=== PATIENT | female | born 1960 | race Caucasian/White ===

== ENCOUNTER → 2017-02-16 | Outpatient (CLI) | payer BC ==
--- NOTE | 2017-02-19 07:40 | MM ---
Reason for exam: screening (asymptomatic). Last mammogram was performed 1 year and 3 months ago. History: Patient is postmenopausal and history of other cancer. Benign excisional biopsy of the right breast, 2004. Benign excisional biopsy of the right breast, 2001. Taking estrogen for 2 years. Taking progesterone for 2 years. Physical Findings: A clinical breast exam by your physician is recommended on an annual basis and results should be correlated with mammographic findings. MG Screening Mammo w CAD Bilateral CC and MLO view(s) were taken. Prior study comparison: November 04, 2015, bilateral MG screening mammo w CAD. March 12, 2014, mammogram. The breast tissue is almost entirely fat. Previous mammotome biopsy in the right breast. No significant changes when compared with prior studies. ASSESSMENT: Benign, BI-RAD 2 RECOMMENDATION: Routine screening mammogram of both breasts in 1 year.
== END | disposition home or self-care (01) ==
LOC: RADMAMWWP 08:10
PROVIDERS: ATTEND Family Medicine
DX: Z12.31 Encounter for screening mammogram for malignant neoplasm of breast (principal)

== ENCOUNTER → 2017-08-14 | Outpatient (CLI) | payer MEDICARE ==
--- NOTE | 2017-08-14 22:41 | BD ---
EXAMINATION TYPE: MG DEXA axial skeleton. DATE OF EXAM: 08/14/2017 COMPARISON: NONE CLINICAL HISTORY: 56-year-old female other specified disorders of bone, postmenopausal screening Height: 63.5 IN Weight: 176 LBS FRAX RISK QUESTIONS: Alcohol (3 or more units per day): NO Family History (Parent hip fracture): NO Glucocorticoids (More than 3mos): NO (Ex: prednisone, prednisolone, methylprednisolone, dexamethasone, and hydrocortisone). History of Fracture in Adulthood: YES LT FOOT AGE 56 Secondary Osteoporosis: 1. Type 1 Diabetes: NO 2. Hyperthyroidism: NO 3. Menopause before 45: NO 4. Malnutrition: NO 5. Chronic liver disease: NO Rheumatoid Arthritis: NO Current Tobacco Use: NO RISK FACTORS HISTORY OF: Active: YES Postmenopausal woman: AGE43 MEDICATIONS: Additional Medications: TRAMADOL LONG AND SHORT ACTING, ATORVASTATIN, OSPHENA, DICLOFENAC SODIUM, ME TAXALONE, EXAM MEASUREMENTS: Bone mineral densitometry was performed using the [employer] System. Bone mineral density as measured about the Lumbar spine is: ----- L1-L4(G/cm2): 1.110 T Score Values are as follows: ----- L2: -0.1 ----- L3: -0.4 ----- L4: -0.5 ----- L1-L4: -0.6 Bone mineral density BASELINE Bone mineral density about the R hip (g/cm2): 0.898 Bone mineral density about the L hip (g/cm2): 0.800 T Score values are as follows: -----R Neck: -1.0 -----L Neck: -1.7 -----R Total: -0.2 -----L Total: -0.9 Bone mineral density BASELINE IMPRESSION: Osteopenia (T Score between -2.5 and -1). There is slightly increased risk of fracture and the patient may be considered for treatment. Re-Screen 2-5 years. NOTE: T-SCORE=SD OF THE YOUNG ADULT MEAN.
== END | disposition home or self-care (01) ==
LOC: RADBDWWP 13:15
PROVIDERS: ATTEND Family Medicine
DX: M85.80 Other specified disorders of bone density and structure, unspecified site (principal)
CPT/HCPCS: 77080

== ENCOUNTER → 2018-03-19 | Outpatient (CLI) | payer MEDICARE ==
--- NOTE | 2018-03-20 12:57 | MM ---
Reason for exam: screening (asymptomatic). Last mammogram was performed 1 year and 1 month ago. History: Patient is postmenopausal and history of other cancer. Benign excisional biopsy of the right breast, 2004. Benign excisional biopsy of the right breast, 2001. Taking estrogen for 2 years. Taking progesterone for 2 years. Physical Findings: A clinical breast exam by your physician is recommended on an annual basis and results should be correlated with mammographic findings. MG 3D Screening Mammo W/Cad Bilateral CC and MLO view(s) were taken. Prior study comparison: February 16, 2017, bilateral MG screening mammo w CAD. November 04, 2015, bilateral MG screening mammo w CAD. There are scattered fibroglandular densities. There are benign appearing round calcifications bilaterally. Previous mammotome biopsy in the right breast. There is no discrete abnormality. ASSESSMENT: Benign, BI-RAD 2 RECOMMENDATION: Routine screening mammogram of both breasts in 1 year.
== END | disposition home or self-care (01) ==
LOC: RADMAMWWP 13:01
PROVIDERS: ATTEND Family Medicine
DX: Z12.31 Encounter for screening mammogram for malignant neoplasm of breast (principal)
CPT/HCPCS: 77063; 77067

== ENCOUNTER → 2018-08-08 | Outpatient (CLI) | payer MEDICARE ==
--- NOTE | 2018-08-09 04:28 | XR ---
EXAMINATION TYPE: XR thoracic spine complete DATE OF EXAM: 08/08/2018 Comparison: None Clinical History: 57-year-old female spinal cord stimulator insertion, M54.5 Findings: 12 rib-bearing thoracic vertebral bodies. All pedicles are visualized. Vertebral body heights are pre served and alignment is maintained. Impression: No vertebral compression collapse or malalignment seen.
== END ==
LOC: RADXRMAIN 14:11
PROVIDERS: ATTEND Physician Assistant
DX: M54.5 Low back pain (principal)
CPT/HCPCS: 72072

== ENCOUNTER → 2019-04-10 | Outpatient (CLI) | payer MEDICARE ==
--- NOTE | 2019-04-10 09:32 | MM ---
Reason for exam: additional evaluation requested from prior study. Last mammogram was performed 1 year and 1 month ago. History: Patient is postmenopausal and history of other cancer. Benign excisional biopsy of the right breast, 2004. Benign excisional biopsy of the right breast, 2001. Taking estrogen for 5 years. Taking progesterone for 5 years. Physical Findings: Nurse did not find any significant physical abnormalities on exam. MG 3D Diag Mammo W/Cad ALLISON Bilateral CC and MLO view(s) were taken. Prior study comparison: March 19, 2018, bilateral MG 3d screening mammo w/cad. February 16, 2017, bilateral MG screening mammo w CAD. There are scattered fibroglandular densities. Benign appearing bilateral calcifications. Post surgical change on the right. Right biopsy marker noted. These results were verbally communicated with the patient and result sheet given to the patient on 04/10/19. ASSESSMENT: Benign, BI-RAD 2 RECOMMENDATION: Routine screening mammogram of both breasts in 1 year. Manage patient on a clinical basis. Dermatology consult recommended.
== END | disposition home or self-care (01) ==
LOC: RADMAMWWP 08:13
PROVIDERS: ATTEND Family Medicine
DX: L30.9 Dermatitis, unspecified (principal)
CPT/HCPCS: 77066; G0279; 77062

== ENCOUNTER 2019-07-16 06:57 | Day surgery (SDC) | payer MEDICARE ==
[~2019-07-16 06:57] MED LIST: LACTATED RINGERS 1,000 ML IV SCH
[2019-07-16 07:13] VITALS: TEMP 96.7
[2019-07-16] MEDS ORDERED: LIDOCAINE 1% INJ 10MG/ML (20 ML MDV) ONE (07:38)
[2019-07-16] MEDS ORDERED: PROPOFOL 10 MG/ML 20 ML VIAL IV ONE (07:38)
--- NOTE | 2019-07-16 07:52 | P.GSHP ---
History of Present Illness H&P Date: 07/16/19 CHIEF COMPLAINT: Colon screen HISTORY OF PRESENT ILLNESS: The patient is a 58-year-old female who presents for colon screen. Lower endoscopy was offered for further evaluation and management. PAST MEDICAL HISTORY: Please see list. PAST SURGICAL HISTORY: Please see list. MEDICATIONS: Please see list. ALLERGIES: Please see list. SOCIAL HISTORY: No illicit drug use FAMILY HISTORY: No reports of Crohn disease or ulcerative colitis. REVIEW OF ORGAN SYSTEMS: CONSTITUTIONAL: No reports of fevers or chills. PHYSICAL EXAM: VITAL SIGNS: Stable GENERAL: Well-developed pleasant in no acute distress. HEENT: No scleral icterus. Extraocular movements grossly intact. Moist buccal mucosa. NECK: Supple without lymphadenopathy. CHEST: Unlabored respirations. Equal bilateral excursions. CARDIOVASCULAR: Regular rate and rhythm. Distal 2+ pulses. ABDOMEN: Soft, nontender, nondistended. MUSCULOSKELETAL: No clubbing, cyanosis, or edema. ASSESSMENT: 1. Colon screen. PLAN: 1. Recommend proceeding with a lower endoscopy Past Medical History Past Medical History: Hyperlipidemia, Musculoskeletal Disorder Additional Past Medical History / Comment(s): BASAL CELL SKIN. INTERMITMENT BACK SPASMS (MULTIPLE MEDS ORDERED) HAS BEEN ON DISABILITY SINCE 2006. COLON POLYPS(NEG). History of Any Multi-Drug Resistant Organisms: None Reported Past Surgical History: Orthopedic Surgery Additional Past Surgical History / Comment(s): 04/29/19: SPINAL CORD STIMULATOR ([facility]). LEFT ANKLE (WIRE), ORIF LEFT ANKLE, LIGAMENT REPRAIR. LIPOMA RIGHT SHOULDER. BASAL CELL ON FACE. ARTHROSCOPY RIGHT SHOULER. BILATERAL CARPAL TUNNEL. Past Anesthesia/Blood Transfusion Reactions: No Reported Reaction Past Psychological History: No Psychological Hx Reported Smoking Status: Never smoker Past Alcohol Use History: Rare Past Drug Use History: None Reported Medications and Allergies Home Medications Medication Instructions Recorded Confirmed Type Atorvastatin [Lipitor] 40 mg PO HS 07/11/19 07/16/19 History Cyclobenzaprine HCl 15 mg PO DAILY 07/11/19 07/16/19 History [Cyclobenzaprine HCl ER] Cyclobenzaprine [Flexeril] 10 mg PO TID PRN 07/11/19 07/16/19 History Diclofenac Sodium [Voltaren] 75 mg PO BID 07/11/19 07/16/19 History Ergocalciferol [Vitamin D2 50,000 unit PO MO 07/11/19 07/16/19 History (DRISDOL)] HYDROcodone/APAP 10-325MG [[place] 1 tab PO TID 07/11/19 07/16/19 History 10-325] Metaxalone 800 mg PO TID 07/11/19 07/11/19 History Multivitamins, Thera [Multivitamin 1 tab PO DAILY 07/11/19 07/16/19 History (formulary)] Ospemifene [Osphena] 60 mg PO MOWEFR 07/11/19 07/11/19 History Vitamin C/Biotin [Hair, Skin and 1 tab PO DAILY 07/11/19 07/16/19 History Nails] Allergies Allergy/AdvReac Type Severity Reaction Status Date / Time milnacipran [From Savea] Allergy HIVES, Verified 07/11/19 15:04 SWELLING Surgical - Exam Vital Signs Temp Pulse Resp BP 96.7 F L 91 20 122/95 07/16/19 07:12 07/16/19 07:12 07/16/19 07:12 07/16/19 07:12
--- NOTE | 2019-07-16 07:55 | P.PCN ---
Date of Procedure: 07/16/19 Description of Procedure: PREOPERATIVE DIAGNOSIS: Colonoscopy screening. Personal history of colon polyps POSTOPERATIVE DIAGNOSIS: Colonoscopy screening. Personal history of colon polyps OPERATION: Colonoscopy to the ileocecal valve and appendiceal orifice. SURGEON: Massiel Yancey MD. ANESTHESIA: MAC. INDICATIONS: The patient is a 58-year-old female who presents for colonoscopy screening. Benefits and risks were described and informed consent was obtained. DESCRIPTION OF PROCEDURE: The patient had undergone Suprep. She had been brought into the operating room and laid in the left lateral decubitus position. After adequate intravenous sedation, the rectum was examined with 2% lidocaine jelly. No external hemorrhoids were encountered. The rectal tone was within normal limits. No lesions were palpated in the rectal vault. An Olympus colonoscope was advanced until the ileocecal valve and appendiceal orifice were clearly viewed. The prep was excellent with clear visualization of the mucosal folds. The scope was removed with visualization of each mucosal fold. No scattered diverticulosis was encountered. No colonic polyps were found. No evidence of focal colitis was found. Retroflexion of the scope demonstrated grade 1 internal hemorrhoids without active bleeding or inflammation. The colon was desufflated. The patient had tolerated the procedure well. Withdrawal time was over 6 minutes. FINDINGS: Aronchick preparation quality scale 1 (1-5) Internal hemorrhoids, grade 1 No external prolapsed hemorrhoids. No arteriovenous malformations. No adenomatous polyps. No focal colitis. No scattered diverticulosis RECOMMENDATIONS: Lower endoscopy in 5 years 2024 or Cologaurd Plan - Discharge Summary Discharge Rx Participant: No New Discharge Prescriptions: Continue Ospemifene [Osphena] 60 mg PO MOWEFR Metaxalone 800 mg PO TID Diclofenac Sodium [Voltaren] 75 mg PO BID Multivitamins, Thera [Multivitamin (formulary)] 1 tab PO DAILY Cyclobenzaprine [Flexeril] 10 mg PO TID PRN PRN Reason: MUSCLE SPASMS Cyclobenzaprine HCl [Cyclobenzaprine HCl ER] 15 mg PO DAILY Atorvastatin [Lipitor] 40 mg PO HS HYDROcodone/APAP 10-325MG [[place] 10-325] 1 tab PO TID Ergocalciferol [Vitamin D2 (DRISDOL)] 50,000 unit PO MO Vitamin C/Biotin [Hair, Skin and Nails] 1 tab PO DAILY Discharge Medication List Atorvastatin [Lipitor] 40 mg PO HS 07/11/19 [History] Cyclobenzaprine HCl [Cyclobenzaprine HCl ER] 15 mg PO DAILY 07/11/19 [History] Cyclobenzaprine [Flexeril] 10 mg PO TID PRN 07/11/19 [History] Diclofenac Sodium [Voltaren] 75 mg PO BID 07/11/19 [History] Ergocalciferol [Vitamin D2 (DRISDOL)] 50,000 unit PO MO 07/11/19 [History] HYDROcodone/APAP 10-325MG [[place] 10-325] 1 tab PO TID 07/11/19 [History] Metaxalone 800 mg PO TID 07/11/19 [History] Multivitamins, Thera [Multivitamin (formulary)] 1 tab PO DAILY 07/11/19 [History] Ospemifene [Osphena] 60 mg PO MOWEFR 07/11/19 [History] Vitamin C/Biotin [Hair, Skin and Nails] 1 tab PO DAILY 07/11/19 [History] Follow up Appointment(s)/Referral(s): Massiel Yancey MD [STAFF PHYSICIAN] - 1 Week Patient Instructions/Handouts: *Surgery [facility] - (Anesthesia) Endoscopy Discharge Instructions Activity/Diet/Wound Care/Special Instructions: Repeat colonoscopy 5 years, 2024 or Cologaurd Discharge Disposition: HOME SELF-CARE
[2019-07-16 08:14] VITALS: BP 108/68; PULSE 93; RESP 18
== END 2019-07-16 09:07 | disposition home or self-care (01) ==
LOC: ORWHC2ENDO 06:57
PROVIDERS: ATTEND Surgery Plastic and Reconstructive Surgery
DX: Z12.11 Encounter for screening for malignant neoplasm of colon (principal); K64.0 First degree hemorrhoids; Z86.010 Personal history of colon polyps; E78.5 Hyperlipidemia, unspecified; M62.830 Muscle spasm of back; Z85.828 Personal history of other malignant neoplasm of skin; Z98.890 Other specified postprocedural states; Z96.82 Presence of neurostimulator; Z87.81 Personal history of (healed) traumatic fracture; Z87.39 Personal history of other diseases of the musculoskeletal system and connective tissue; Z86.69 Personal history of other diseases of the nervous system and sense organs; Z79.899 Other long term (current) drug therapy; Z79.891 Long term (current) use of opiate analgesic; Z79.810 Long term (current) use of selective estrogen receptor modulators (SERMs); Z88.8 Allergy status to other drugs, medicaments and biological substances
CPT/HCPCS: J2001; J2704; G0105